=== PATIENT | male | born 1935 | race Caucasian/White ===

== ENCOUNTER 2022-01-21 18:18 | Emergency (ER) | payer OTHER ==
[~2022-01-21] VITALS: Ht 170.2 cm; Wt 88.0 kg
[2022-01-21 18:20] VITALS: BP_SYST 153
[2022-01-21 18:58] LABS: ANION GAP 10 (5-15); CALCIUM 8.8 mg/dL (8.4-11.0); CHLORIDE 101 mmol/L (98-107); CREATININE 1.14 mg/dL (0.55-1.30); GLUCOSE 107 mg/dL (70-99); POTASSIUM 3.7 mmol/L (3.5-5.1); SODIUM SERUM 137 mmol/L (136-145); UREA NITROGEN, BLOOD 25 mg/dL (8-21)
[2022-01-21 18:59] LABS: EOSINOPHILS # (AUTO) 0.1 K/uL (0.0-0.4); HEMOGLOBIN 13.5 g/dL (14.0-18.0); LYMPHOCYTES # (AUTO) 1.4 K/uL (1.0-5.5); LYMPHOCYTES % (AUTO) 20.1 % (20.5-51.5)
[2022-01-21 19:12] LABS: ALANINE AMINOTRANSFERASE 8 U/L (12-78); ALBUMIN 3.6 g/dL (3.4-4.8); ASPARTATE AMINOTRANSFERASE 13 U/L (10-37); BASOPHILS % (AUTO) 0.5 % (0.0-2.0); EOSINOPHILS % (AUTO) 1.7 % (0.0-4.0); HEMATOCRIT 40.5 % (36-54); MEAN CORPUSCULAR HEMOGLOBIN 31 pg (27-31); MEAN CORPUSCULAR HGB CONC 33 % (32-36); MEAN CORPUSCULAR VOLUME 94 fL (79.0-98.0); MONOCYTES % (AUTO) 14.6 % (1.7-9.3); NEUTROPHILS # (AUTO) 4.4 K/uL (1.8-7.7); NEUTROPHILS % (AUTO) 63.1 % (40.0-70.0); PLATELET COUNT (AUTO) 224 K/uL (130-430); RED CELL DISTRIBUTION WIDTH 14.1 % (9.0-15.0); TOTAL BILIRUBIN 0.8 mg/dL (0.0-1.0)
[2022-01-21 19:14] LABS: ACETAMINOPHEN < 1 ug/mL (1-30); ALCOHOL, BLOOD < 3 mg/dL (<10)
[2022-01-21 19:51] LABS: BILIRUBIN,URINE NEGATIVE (NEGATIVE); BLOOD, URINE NEGATIVE (NEGATIVE); CLARITY/URINE CLEAR (CLEAR); COLOR,URINE YELLOW (YELLOW); GLUCOSE,URINE NEGATIVE (NEGATIVE); KETONES,URINE TRACE (NEGATIVE); LEUKOCYTE ESTERASE ,URINE NEGATIVE (NEGATIVE); NITRITE, URINE NEGATIVE (NEGATIVE); PH,URINE 5.5 (5.0-8.0); PROTEIN URINE NEGATIVE (NEGATIVE); UROBILINOGEN,URINE 0.2 (0.2-1.0)
--- NOTE | 2022-01-21 20:45 | NUR ---
PATIENT PLACED IN ROOM 1 FOR EVALUATION.
--- NOTE | 2022-01-21 21:00 | NUR ---
PT PLACED IN ED 1, PT BIBA FOR HALUCINATIONS AFTER STARTING NEW PARKINSONS MEDIACTION X 2 DAYS AGO, PT WAS AT A [employer] WITH THE SISTER AND GOT TIRED AND SAID HE STARTED SEEEING THINGS LIKE TWO LITTLE GIRLS AND A DONKEY. PT DENIES SEEING ANYTHING SINCE HE WAS AT THE [employer]. PT PLACED ON COMPLIANCE AND CONTROL ANALYST, CHANGED INTO A GOWN. HX- PACEMAKER, PARKINSON AND HTN.
--- NOTE | 2022-01-21 21:23 | NUR ---
CHAVEZ collected and sent to lab.
--- NOTE | 2022-01-21 21:46 | NUR ---
[employer] [facility] [facility] FROM [facility] CALLED FOR MEDICAL INFO FOR PT, POSSIBLE TRANSFER TO [facility].
--- NOTE | 2022-01-21 22:20 | NUR ---
SISTER AT BEDSIDE
--- NOTE | 2022-01-21 23:07 | NUR ---
PT AMBULATED TO RESTROOM WITH NO ASSISTANCE, PT STATES HE WANTS TO GO HOME, SISTER AT BEDSIDE.
--- NOTE | 2022-01-21 23:42 | NUR ---
Patient given written and verbal discharge instructions and verbalizes understanding. ER MD discussed with patient the results and treatment provided. Patient in stable condition. ID arm band removed. Patient educated to follow up with PMD. Pain Scale 0. Opportunity for questions provided and answered. Medication side effect fact sheet provided. PT W/C OUT TO CAR BY TREVA VAUGHN. SISTER WITH PT
[2022-01-21 23:45] VITALS: BP_SYST 155
[2022-01-22 03:01] LABS: BARBITURATE, URINE NEGATIVE (NEG <=200); BENZODIAZEPINE, URINE NEGATIVE (NEG <=150); CANNABINOID, URINE NEGATIVE (NEG <=50); COCAINE, URINE NEGATIVE (NEG <=150); METHAMPHETAMINES SCREEN,URINE NEGATIVE (NEG <=500); OPIATE, URINE NEGATIVE (NEG <=100); PHENCYCLIDINE SCREEN,URINE NEGATIVE (NEG <=25); UR TRICYCLIC ANTIDEPRESSANTS NEGATIVE (NEG <=300); URINE AMPHETAMINE NEGATIVE (NEG <=500); URINE METHADONE NEGATIVE (NEG <=200); URINE OXYCODONE SCREEN NEGATIVE (NEG <=100); URINE PROPOXYPHENE SCREEN NEGATIVE (NEG <=300)
== END 2022-01-21 23:45 | disposition home or self-care (01) ==
LOC: SED 18:18
DX: F23 Brief psychotic disorder (principal); I10 Essential (primary) hypertension; Z88.8 Allergy status to other drugs, medicaments and biological substances; Z79.899 Other long term (current) drug therapy; Z20.822 Contact with and (suspected) exposure to COVID-19
CPT/HCPCS: 99285; 70450; 71045; 87426; 80307; 80053; 85025; 36415; 93005; 76376; 81003; G0482; G0480